=== PATIENT | female | born 1975 | race Caucasian/White ===

== ENCOUNTER → 2018-10-31 | Outpatient (CLI) | payer SELFPAY ==
[2018-10-31 21:27] LABS: Chlamydia Trachomatis by PCR Negative (Negative); Neisserai gonorrhoeae by PCR Negative (Negative); Probe Check PASS; Sample Adequacy Control PASS; Specimen Processing Control PASS
== END | disposition home or self-care (01) ==
PROVIDERS: Family Provider Family Medicine; PCP Family Medicine; Visit Provider Obstetrics & Gynecology
DX: Z34.83 Encounter for supervision of other normal pregnancy, third trimester (principal)
CPT/HCPCS: 87491; 87591

== ENCOUNTER 2018-12-20 05:45 | Inpatient (IN) | payer SELFPAY ==
[2018-12-20] VITALS (15 sets, daily range): BP systolic 94–126; BP diastolic 53–84; PULSE 61–95; RESP 14–20; TEMP 36.2–36.6; O2SAT 92–99; BMI 32.1
[2018-12-20] MEDS: Lactated Ringers 1,000 ML 150 ML IV (08:45)
[2018-12-20 09:01] LABS: Absolute Lymphocyte Count 1.68 X10^3/uL (0.83-4.51); Basophil# 0.02 X10^3/uL; Basophil% 0.3 % (0-1); Eosinophil# 0.14 X10^3/uL; Eosinophils% 1.9 % (0-5); Hematocrit 35.1 % (37-47); Hemoglobin 11.8 g/dL (12.0-15.0); Lymphocyte # 1.68 X10^3/ul (4.0); Lymphocyte % 22.4 % (19-41); Mean Corp Hgb Conc 33.6 g/dL (32-36); Mean Corpuscular Hgb 31.3 pg (27.0-32.0); Mean Corpuscular Volume 93.1 fL (81-99); Mean Platelet Vol. 11.8 fl (6.2-12.0); Monocyte# 0.64 X10^3/uL; Monocyte% 8.5 % (0-10); NRBC Flagged by Analyzer 0 % (0-5); Neutrophil # 4.99 X10^3/uL (2.7-7.7); Neutrophil % 66.5 % (47-70); Platelet Count 146 K/mm3 (150-450); RBC Distribution Width CV 15.4 % (11.6-14.6); RBC Distribution Width SD 51.8 fl (35.1-43.9); Red Blood Count 3.77 M/mm3 (4.2-5.4); White Blood Count 7.5 K/mm3 (4.4-11.0)
[2018-12-20 10:35] LABS: International Normalized Ratio 1.1; Prothrombin Time (Protime)PT. 13.6 SECONDS (11.7-14.9)
[2018-12-20] MEDS: Lactated Ringers 1,000 ML 999 ML IV (11:06)
[2018-12-20] MEDS: Sodium Citrate/Citric Acid 30 ML UDC PO (11:31)
[2018-12-20] MEDS: Cefazolin 2 GM in 0.9% Normal Saline 100 ML IV (11:40)
[2018-12-20] MEDS: Oxytocin 30 units/NS 500 ml 30 UNITS/500 ML IV.SOLN 167 UNITS IV (12:05)
[2018-12-20] MEDS: Ondansetron 4 MG/2 ML Vial IV (12:10)
[2018-12-20] MEDS: Ketorolac 30 MG/ML Syringe IV ×3 (12:47→23:48)
--- NOTE | 2018-12-20 12:55 | OP.PCM_ITS ---
Delivery Classification: Scheduled Final MADI: 01/10/19 Gestational age: 37 Weeks and 0 Days Indications: Prior Section, Total Placenta Previa Description of Procedure: Surgeon: Howie Doherty MD, FACOG Meeting Facilitator: LOLITA Montalvo Anesthesia: Jorge Garcia MD; Rachelle Nova CRNA Anesthesia: General Endotracheal (due to bleeding noted with blood draw presumed due to multiple herbal medications) Pre-op Diagnosis: Prior Section, Desires Sterilization, Total Placenta Previa Post-Op Diagnosis: Prior Section, Desires Sterilization, Total Placenta Previa, Breech Presentation, Right Ovarian Cyst Procedure: Repeat Low Transverse Cervical Caesarean Section, Bilateral Salpingectomy, and Excision Right Ovarian Cyst Findings: Viable female with Apgars of 8/9 in backdown transverse lie presentation delivered breech with clear amniotic fluid and normal three-vessel placenta. 2 cm pedunculated right ovarian cystic structure excised. Normal fallopian tubes and ovaries otherwise. Indication: This is a 43-year-old who presents for her second at 37 weeks gestation. care has otherwise been uneventful except for prior section, total placenta previa, and desiring sterilization. The patient has been counseled regarding the risk and indications of this procedure including the possibility of bleeding infection and injury to surrounding structures such as bowel bladder. She also understands the permanent nature of a tubal sterilization and a failure rate of approximately 1%. All questions were answered. Procedure: Patient was taken to the operating room where the patient was prepped and draped in usual sterile fashion and a Crowley catheter was placed after which general anesthesia anesthesia was induced. The abdomen was entered through the patient's prior Pfannenstiel incision and peritoneum was entered bluntly. After developing a bladder flap on the lower uterine segment a low transverse incision was made on the uterus and breech was delivered after turning the baby from back down low transverse lie to this position and the baby was brought onto the operative field wkere nose mouth and oropharynx were bulb suctioned. Subse quently a viable female was born with Apgars of 8/9. The was noted to cry move all extremities vigorously on the operative field. The umbilical cord was doubly clamped and ligated and infant handed to the nursery personnel who were present for the delivery. Placenta was delivered and noted to be 3 vessels and normal. Uterus was exteriorized and remaining placental tissue was removed. The uterus was then closed in 2 layers first with running locked 0 Vicryl suture followed by a second imbricating layer with 0 Vicryl suture. 0 Vicryl suture was then used in a horizontal mattress interrupted fashion to affect final hemostasis of the uterine incision line. Normal fallopian tubes and ovaries were visualized and then the mesosalpinx was divided with #1 Vicryl suture to the level of the uterus and the tubes were both excised. A pedunculated right ovarian cyst was visualized and this was removed with 35 W coagulation cautery from the ovary and sent along with the bilateral fallopian tubes specimens. The uterus was returned to the pelvis. Hemostasis was noted and rectus abdominis muscles were reapproximated in the midline with interrupted Number 0 Vicryl suture in a horizontal mattress fashion. Fascia was closed with running Number 1 PDS Strata fix suture. Subcutaneous tissue was irrigated with copious amounts of saline solution and then closed with running 3-0 Vicryl suture. Skin was closed with 4-0 monocryl suture in a running subcuticular fashion. Steri strips, telfa, and tape were placed across the incision. The patient tolerated the procedure well and was taken to the recovery room in satisfactory condition. Sponge, needle, and instrument counts were all reportedly correct. EBL was 750 cc. Ancef 2 gms IV was given prior to the procedure. Complications: None Amniotic Fluid Description: Clear Placenta Disposition: [facility] Specimen(s) sent to pathology: Bilateral fallopian tubes and right ovarian cyst Drain: Crowley to straight drain Cord Entanglement: None Cord Vessel Description: 3 Vessels Esitmated Blood Loss (ml): 750 cc Infant Gender: Female (1 minute): 8 (5 minute): 9 Pre-op Antibiotic Given: Ancef 2 grams IV x1 Pt instructed on risks of surgery: Bleeding, Infection, Injury to surrounding structure(s) including bowel and bladder, Availability of other non-permanent control options - Admit VTE Documentation VTE Present on Admission: Yes VTE Mechan Device Prophylaxis: SCD's
--- NOTE | 2018-12-20 13:08 | DCINST_ITS ---
Discharge Diet: No Restrictions Discharge Activity: May not drive while taking narcotic pain medications., May Shower, May Take a Tub Bath May resume sexual activity in: 4-6 weeks Lifting Restrictions: 20 pounds Additional Activity Instructions:: Nothing in the vagina for 4-6 weeks. You may return to work/school in 6 weeks. Call your doctor if your incision/area has: Continuous Slow Oozing, Sudden Increased Bleeding, Increased Pain/ Swelling, Increased Redness, Foul Smelling Discharge Call your doctor if you observe: Fever of 101 or Higher, Inability to urinate, Inability to have a bowel movement, Using more than one pad per hour Additional Instructions: If you experience any of the following, contact your healthcare provider. * Bleeding that soaks a pad every hour for 2 hours * Unrelieved incision or abdominal pain * Swelling, redness, discharge or bleeding from your incision or episiotomy site * Your incision begins to separate * Problems urinating (including inability to urinate or burning while urinating). * Visual changes * Severe headache * Flu-like symptoms * Pain or redness in one of both of your breasts * Pain, warmth, tenderness or swelling in your legs, especially the calf area * Frequent nausea and vomiting * Symptoms of depression or anxiety If you experience any of the following, call 911 or go to the nearest Emergency Room. * Chest pain * Problems breathing * Seizure activity * Partial or complete paralysis of a body part, slurred speech, weakness or drooping of the face, or a sudden inability to walk or hold your balance Allergies/Adverse Reactions: Allergies No Known Allergies Allergy (Verified 12/20/18 08:23) Medications to take at Discharge Docusate Sodium [Colace] 100 mg PO BID PRN PRN #60 cap 12/20/18 Herbal Drugs 12/20/18 Oxycodone [Oxyir] 5 mg PO Q6H PRN PRN 7 Days #20 tab 12/20/18 Prenatabs FA 1 PO DAILY 12/20/18 The following prescriptions were given: Docusate Sodium [Colace] 100 mg PO BID PRN PRN #60 cap PRN Reason: Constipation Prescription Printed Oxycodone [Oxyir] 5 mg PO Q6H PRN PRN 7 Days #20 tab PRN Reason: Severe Pain () Prescription Printed Follow-Up: Call to make an appointment with your doctor for an incision check in 1-2 weeks. You will also need a 6 week post- follow up appointment. Test results from this visit will be discussed in further detail at your follow- up appointment, if applicable. Please Follow Up With: Howie Doherty MD - [phone] When: Call to make an appointment for an incision check in 2 weeks. Primary Care Physician: Howie Stahl [Primary Care Provider] -
[2018-12-20] MEDS: Lactated Ringers 1,000 ML 100 ML IV ×2 (13:15→18:34)
[2018-12-20] MEDS: HYDROmorphone 1 MG/ML Syringe IV ×2 (13:27→16:45)
--- NOTE | 2018-12-20 15:35 | FALS_PTH ---
PATIENT: KENNY TSE LOC: [facility] U#:[id number] AGE/SX: 43/F ROOM: WP006 RE12/20/[address]: Dr. Howie Doherty MD : 1975 BED: 1 DIS: 12/22/2018 SPEC #: [id number] RECD: 12/21/18 10:17 STATUS: YUE LIZBETH #: [id number] ARIANNE: 12/20/18 15:[address]: Howie Doherty DEPT: SURGICAL PATHOLOGY RECD BY: Malick Acuña ENTERED: 12/21/18 10:17 SP TYPE: FALL TUBES OTHR DR: Dr. Howie Stahl MD Tissues: Fallopian tube Procedures: Surgery Specimen Level II Surgery Specimen Level IV HEADER OPERATION: Tubal ligation PRE-OP DIAGNOSIS: Desires sterilization TISSUE SUBMITTED: Fallopian tubes and right ovarian cyst (suture in right tube) MICROSCOPIC DIAGNOSIS Bilateral fallopian tubes and right ovarian cyst, bilateral salpingectomy and cystectomy: Bilateral fallopian tubes - bilateral fallopian tubes including fimbrial ends, no pathologic diagnosis. Ovarian cyst - consistent with serous cystadenoma. - Focal decidual changes. MARIA EUGENIA:matias 12/22/18 MICROSCOPIC DESCRIPTION Slides are reviewed. GROSS DESCRIPTION Received in fixative is one container labeled with the patient's name and designated right ovarian cyst, fallopian tubes, suture in right tube. The specimen consists of bilateral fallopian tubes including fimbrial ends and a cyst. The right tube is identified by a suture. The right fallopian tube measures 5.5 cm in length and up to 1 cm in diameter and the left fallopian tube measures 6 cm in length and 0.6 cm in diameter. Sections of the fallopian tubes reveal unremarkable cut surfaces. The cyst measures 4 x 3 x 0.5 cm. The outer surface of cyst is smooth and inked black. The cyst is filled with clear fluid. The inner cyst wall is smooth without any papillation and measures 0.1 cm in thickness. No solid area is identified. Steam Press Operator sections are submitted in four cassettes as follows: 1 - right fallopian tube, 2- left fallopian tube, 3 & 4 - cyst, entirely submitted. / MARIA EUGENIA:matias 12/21/18 TC:1 CPT: 33104, 51333 x2
[2018-12-20] MEDS: 0.9% Saline Lock 10 ML Syringe IV ×2 (16:46→17:49)
[2018-12-20 20:32] LABS: Pathology Specimen OB SEE PATHOLOGY REPORT
[2018-12-20] MEDS: Cefazolin 1 GM/50 ML BAG IV (22:32)
[2018-12-21 00:25] VITALS: BP 99/60; PULSE 86; RESP 16; TEMP 36.4; O2SAT 97
[2018-12-21 04:00] VITALS: BP 100/52; PULSE 80; RESP 18; TEMP 36.6; O2SAT 96
[2018-12-21] MEDS: 0.9% Saline Lock 10 ML Syringe IV ×6 (05:00→23:36)
[2018-12-21] MEDS: Ketorolac 30 MG/ML Syringe IV ×4 (05:01→23:32)
[2018-12-21] MEDS: Cefazolin 1 GM/50 ML BAG IV (05:01)
[2018-12-21 05:22] LABS: Hematocrit 31.2 % (37-47); Hemoglobin 10.5 g/dL (12.0-15.0); Mean Corp Hgb Conc 33.7 g/dL (32-36); Mean Corpuscular Hgb 31.6 pg (27.0-32.0); Mean Platelet Vol. 11.7 fl (6.2-12.0); Platelet Count 148 K/mm3 (150-450); RBC Distribution Width CV 15.5 % (11.6-14.6); RBC Distribution Width SD 52.3 fl (35.1-43.9); Red Blood Count 3.32 M/mm3 (4.2-5.4); White Blood Count 10.3 K/mm3 (4.4-11.0)
[2018-12-21 08:00] VITALS: BP 105/64; PULSE 84; RESP 16; TEMP 36.6; O2SAT 97
[2018-12-21] MEDS: Acetaminophen 500 MG Tablet 1000 MG PO ×2 (08:43→17:01)
[2018-12-21] MEDS: Senna/Docusate Sodium 1 Tablet PO (08:44)
[2018-12-21 14:30] VITALS: BP 110/54; PULSE 71; RESP 16; TEMP 36.4; O2SAT 98
--- NOTE | 2018-12-21 18:19 | PCM.PN.OB ---
Subjective: Patient without complaints. Tolerating diet well. Pain well controlled. Positive flatus. - Physical Exam Vital Signs Temp Pulse Resp BP Pulse Ox 97.6 F L 71 16 110/54 L 98 12/21/18 14:30 12/21/18 14:30 12/21/18 14:30 12/21/18 14:30 12/21/18 14:30 Oxygen Delivery Method Room Air Weight: 199 lb 6 oz Body Mass Index (BMI) 32.1 Intake and Output for Last 24 Hours 12/19/18 12/20/18 12/21/18 23:59 23:59 23:59 Intake Total 3906 / 3906 670 / 670 Output Total 1900 / 1900 1750 / 1750 Balance 2005 / 2005 -1080 / -1080 Laboratory Tests Past 24 Hrs 12/21/18 05:00 WBC 10.3 RBC 3.32 L Hgb 10.5 L Hct 31.2 L MCV 94.0 MCH 31.6 MCHC 33.7 RDW Std Deviation 52.3 H RDW Coeff of Naila 15.5 H Plt Count 148 L MPV 11.7 Good urine output. Hemoglobin okay. Wound is clean, dry, and intact. Medical Necessity - Tobacco Use Smoking Status: Never smoker Assessment/Plan Doing well postoperative day #1 status post repeat section. Continuing present care.
[2018-12-21 20:11] VITALS: BP 106/57; PULSE 83; RESP 18; TEMP 36.4; O2SAT 96
[2018-12-22 02:00] VITALS: BP 115/70; PULSE 80; RESP 16; TEMP 37
[2018-12-22] MEDS: oxyCODONE 5 MG Tablet PO ×2 (02:01→08:47)
[2018-12-22] MEDS: Ketorolac 30 MG/ML Syringe IV (05:37)
[2018-12-22] MEDS: 0.9% Saline Lock 10 ML Syringe IV ×2 (05:38→05:39)
[2018-12-22 08:00] VITALS: BP 112/64; PULSE 83; RESP 16; TEMP 36.1; O2SAT 97
--- NOTE | 2018-12-22 08:04 | PN.OBGYN_ITS ---
Subjective: Patient without complaints. Tolerating diet well. Positive flatus. Breast- feeding going well. Ready to go home today. - Physical Exam Vital Signs Temp Pulse Resp BP Pulse Ox 98.6 F 80 16 115/70 96 12/22/18 02:00 12/22/18 02:00 12/22/18 02:00 12/22/18 02:00 12/21/18 20:11 Oxygen Delivery Method Room Air Weight: 199 lb 6 oz Body Mass Index (BMI) 32.1 Intake and Output for Last 24 Hours 12/20/18 12/21/18 12/22/18 23:59 23:59 23:59 Intake Total 3906 / 3906 670 / 670 Output Total 1900 / 1900 1750 / 1750 Balance 2005 -1080 / -1080 Wound is clean, dry, intact. Good urine output. Medical Necessity - Tobacco Use Smoking Status: Never smoker Assessment/Plan Doing well post operative day #2 status post repeat and placenta previa. Will discharge home with routine instructions. Follow-up in 2 weeks in 6 weeks.
[2018-12-22] MEDS: Acetaminophen 500 MG Tablet 1000 MG PO (08:47)
[2018-12-22] MEDS: Senna/Docusate Sodium 1 Tablet PO (08:48)
[2018-12-22 13:51] VITALS: BP 107/68; PULSE 80; RESP 16; TEMP 36.3; O2SAT 98
--- NOTE | 2018-12-27 15:50 | NURSING ---
No answer on follow up phone call left voicemail.
== END 2018-12-22 14:30 | disposition home or self-care (01) | DRG 785 ==
PROVIDERS: Admitting Provider Obstetrics & Gynecology; Family Provider Family Medicine; PCP Family Medicine; Referring Provider Obstetrics & Gynecology; Visit Provider Obstetrics & Gynecology
PROC: 10D00Z1 Extraction of Products of Conception, Low, Open Approach (ICD-10-PCS; CPT 59514; principal; 2018-12-20 07:15)
DX: O34.211 Maternal care for low transverse scar from previous cesarean delivery (principal); Z30.2 Encounter for sterilization; Z3A.37 37 weeks gestation of pregnancy; Z37.0 Single live birth; O44.00 Complete placenta previa NOS or without hemorrhage, unspecified trimester; O99.284 Endocrine, nutritional and metabolic diseases complicating childbirth; E04.9 Nontoxic goiter, unspecified; N83.201 Unspecified ovarian cyst, right side; O34.83 Maternal care for other abnormalities of pelvic organs, third trimester; O32.1XX0 Maternal care for breech presentation, not applicable or unspecified
CPT/HCPCS: 59025; 85025; 85027; 85610; 86850; 86900; 86920; 88302; 88305; 99218; J7120; A4216; G0378; J2405

== ENCOUNTER → 2019-01-30 | Outpatient (CLI) | payer SELFPAY ==
[2018-12-20 05:55] VITALS: BMI 32.1
[2019-02-02 12:07] LABS: HPV Reflexed? NOT INDICATED
== END | disposition home or self-care (01) ==
LOC: LABSPEC 01-31 10:58
PROVIDERS: Visit Provider Obstetrics & Gynecology
DX: Z12.4 Encounter for screening for malignant neoplasm of cervix (principal)
CPT/HCPCS: 87624; 88175; G0145